=== PATIENT | male | born 1990 | race Caucasian/White ===

== ENCOUNTER 2017-06-22 18:42 | Emergency (ER) | payer SELFPAY ==
[2017-06-22 18:52] VITALS: BP 121/70
[2017-06-22] MEDS ORDERED: Ibuprofen TAB* 800 MG PO ONE (20:14)
[2017-06-22] MEDS ORDERED: Tetan/Diph/Pertus SYR(Tdap)* 0.5 ML SYR(BOOSTRIX) use SYR IM ONE (21:33)
--- NOTE | 2017-06-22 21:37 | ED ---
Upper Extremity Pain - HPI Summary HPI Summary: Rt hand dominant pt here w/ Lt index finger lac while cutting frozen palacio. Bleeding controlled w/ pressure. Denies numbness, tingling, weakness. Unsure of last tetanus vaccine - would like to boost this tonight. No other injuries to report. - History of Current Complaint Chief Complaint: EDLacSutureRecheck Stated Complaint: LEFT FINGER LACERATION Time Seen by Provider: 06/22/17 19:53 Hx Obtained From: Patient - Allergies/Home Medications Allergies/Adverse Reactions: Allergies Allergy/AdvReac Type Severity Reaction Status Date / Time Iohexol Allergy See Comment Verified 01/04/14 12:56 PMH/Surg Hx/FS Hx/Imm Hx Previously Healthy: Yes Endocrine/Hematology History: Denies: Hx Anticoagulant Therapy, Hx Blood Disorders - Immunization History Immunizations Up to Date: Unable to Obtain/Confirm Infectious Disease History: No Infectious Disease History: Denies: Hx of Known/Suspected MRSA, Traveled Outside the [place] in Last 30 Days - Family History Known Family History: Positive: None - Social History Occupation: Unemployed Lives: With Family Alcohol Use: None Hx Substance Use: No Substance Use Type: Reports: None Hx Tobacco Use: Yes Smoking Status (MU): Current Every Day Smoker Review of Systems Positive: no symptoms reported Musculoskeletal: Negative Skin: Other - lac Neurological: Negative Psychological: Normal All Other Systems Reviewed And Are Negative: Yes Physical Exam Triage Information Reviewed: Yes Vital Signs On Initial Exam: Initial Vitals Temp Pulse Resp BP Pulse Ox 99.6 F 80 16 121/70 95 06/22/17 18:50 06/22/17 18:50 06/22/17 18:50 06/22/17 18:50 06/22/17 18:50 Vital Signs Reviewed: Yes Appearance: Positive: Well-Appearing, No Pain Distress, Well-Nourished Skin: Positive: Warm, Dry - linear laceration over dorsal aspect of Lt index finger, crossing PIP joint - no active bleeding Head/Face: Positive: Normal Head/Face Inspection Eyes: Positive: EOMI ENT: Positive: Hearing grossly normal Respiratory/Lung Sounds: Positive: Breath Sounds Present Cardiovascular: Positive: Pulses are Symmetrical in both Upper and Lower Extremities Musculoskeletal: Positive: Normal, Strength/ROM Intact Neurological: Positive: Normal, Sensory/Motor Intact, Alert, Oriented to Person Place, Time, CN Intact II-III Psychiatric: Positive: Normal - Shonda Coma Scale Coma Scale Total: 15 Procedures - Laceration/Wound Repair 1 Location: upper extremity - Lt index finger Description: Linear Length, Depth and Shape: 2cm x 3mm Betadine Prep?: Yes Irrigated w/ Saline (ccs): 250 Laceration/Wound Explored: clean Closure: Single Layer Suture Type: Nylon - 5-0 Number of Sutures: 4 Layer Closure?: No Sterile Dressing Applied?: Yes - triple anbx ointment+ gauze+splint - N/V intact before and after Diagnostics - Vital Signs Vital Signs Temp Pulse Resp BP Pulse Ox 06/22/17 18:50 99.6 F 80 16 121/70 95 - Laboratory Lab Statement: Any lab studies that have been ordered have been reviewed, and results considered in the medical decision making process. Course/Dx - Course Course Of Treatment: Pt wound cleaned and closed - investigation did not reveal tendon injury. Hemodynamically stable. Pt tolerated procedure well. Advised on care and f/u - pt agrees w/ plan. - Diagnoses Provider Diagnoses: Laceration of left index finger Discharge - Discharge Plan Condition: Stable Disposition: HOME Patient Education Materials: Care For Your Stitches (ED), Finger Laceration (ED ) Referrals: No Primary Care Phys,NOPCP [Primary Care Provider] - Additional Instructions: Keep dressing clean, dry and in place for 48 hours. After that time, you may remove dressing to gently wash wound daily with antibacterial soap and water - rinse well and pat dry with clean cloth then reapply triple antibiotic ointment plus dressing and splint. Keep splint in place for 10-14 days to prevent opening wound - followup with PCP or go to urgent care, ED for wound check and suture removal. In the meantime, rest, ice, elevate for pain relief. You may also take ibuprofen with food for pain relief. *If area becomes red, swollen, drains yellow/white/green discharge, streaking of redness or you develop fever or chills, return to ED
== END 2017-06-22 21:52 | disposition home or self-care (01) ==
LOC: ED 18:42
DX: S61.211A Laceration without foreign body of left index finger without damage to nail, initial encounter (principal); W26.0XXA Contact with knife, initial encounter; Y93.G1 Activity, food preparation and clean up; Y92.9 Unspecified place or not applicable; Z23 Encounter for immunization; F17.210 Nicotine dependence, cigarettes, uncomplicated
CPT/HCPCS: 12001; 90471; 90715; 99282; A9270-GY

== ENCOUNTER 2017-07-06 09:52 | Emergency (ER) | payer SELFPAY ==
--- NOTE | 2017-07-06 10:44 | ED ---
Laceration/Wound HPI - HPI Summary HPI Summary: Patient presents to the ED with request for suture removal. 4 sutures placed to the left index anterior finger. He has been in a splint since sutures were placed 1 week ago. He states after the accident he was able to move the finger , except now with removing the splint, he is unable to flex or extend at the DIP or PIP joint. Denies numbness, tingling. Denies color or temperature changes. Pulses +2 bilaterally and cap refill < 2 sec. Has been otherwise healthy. Using abx ointment daily until today. - History of Current Complaint Stated Complaint: STICHES NEED TO BE REMOVED Time Seen by Provider: 07/06/17 09:53 Hx Obtained From: Patient Mechanism of Injury: Sharp/Blunt Trauma Onset/Duration: Sudden Onset Aggravating: Movement Alleviating: Compression Timing: Constant Current Severity: Mild Pain Intensity: 0 Pain Scale Used: 0-10 Numeric Associated Signs & Symptoms: Negative Related Hx: Dominant Hand (Right) - Allergy/Home Medications Allergies/Adverse Reactions: Allergies Allergy/AdvReac Type Severity Reaction Status Date / Time Iohexol Allergy See Comment Verified 01/04/14 12:56 PMH/Surg Hx/FS Hx/Imm Hx Previously Healthy: Yes Endocrine/Hematology History: Denies: Hx Anticoagulant Therapy, Hx Blood Disorders Infectious Disease History: No Infectious Disease History: Denies: Hx of Known/Suspected MRSA, Traveled Outside the in Last 30 Days - Family History Known Family History: Positive: None - Social History Occupation: Employed Full-time Lives: With Family Alcohol Use: None Hx Substance Use: No Substance Use Type: Reports: None Hx Tobacco Use: Yes Smoking Status (MU): Heavy Every Day Tobacco Smoker Review of Systems Constitutional: Negative Negative: Fever, Fatigue Eyes: Negative Cardiovascular: Negative Gastrointestinal: Negative Genitourinary: Negative Positive: no symptoms reported, see HPI Positive: Decreased ROM, Other - unable to flex or extend at the left index finger Neurological: Negative All Other Systems Reviewed And Are Negative: Yes Physical Exam Triage Information Reviewed: Yes Vital Signs On Initial Exam: Initial Vitals Temp Pulse Resp BP Pulse Ox 97.4 F 73 16 126/68 97 07/06/17 09:54 07/06/17 09:54 07/06/17 09:54 07/06/17 09:54 07/06/17 09:54 Vital Signs Reviewed: Yes Appearance: Positive: Well-Appearing, Well-Nourished Skin: Positive: Warm, Skin Color Reflects Adequate Perfusion, Other - healing wound - upon passive flexion of the digit, the wound continues to open as laceration is located over the PIP joint. No signs of infection. Laceratoin remains superifical Head/Face: Positive: Normal Head/Face Inspection Eyes: Positive: EOMI, MALATHI, Conjunctiva Clear Respiratory/Lung Sounds: Positive: Clear to Auscultation, Breath Sounds Present Cardiovascular: Positive: Normal, RRR, Pulses are Symmetrical in both Upper and Lower Extremities Musculoskeletal: Positive: Other - decreased ROM of flexion and extension at the PIP joint Neurological: Positive: Sensory/Motor Intact, Alert, Oriented to Person Place, Time, Speech Normal Psychiatric: Positive: Affect/Mood Appropriate Diagnostics - Vital Signs Vital Signs Temp Pulse Resp BP Pulse Ox 07/06/17 09:54 97.4 F 73 16 126/68 97 - Laboratory Lab Statement: Any lab studies that have been ordered have been reviewed, and results considered in the medical decision making process. Laceration Repair Course/Dx - Course Course Of Treatment: Healing wound - upon passive flexion of the digit, the wound continues to open as laceration is located over the PIP joint. No signs of infection. Laceratoin remains superifical. Sutures removed. Patient tolerated well. Ortho referral given for decreased ROM. abx ointment applied and wrapped. Patient OK with discharge. - Clinical Impression Provider Diagnoses: Visit for suture removal Discharge - Discharge Plan Condition: Stable Disposition: HOME Patient Education Materials: Stitches Removal (ED) Referrals: No Primary Care Phys,NOPCP [Primary Care Provider] - Rob Lebron MD [Medical Doctor] - Additional Instructions: Attempt to move it at times throughout the day I have given you an orthopedic referral for any worsening symptoms
[2017-07-06 10:51] VITALS: BP 133/78
== END 2017-07-06 10:50 | disposition home or self-care (01) ==
LOC: ED 09:52
DX: S61.211D Laceration without foreign body of left index finger without damage to nail, subsequent encounter (principal); Z48.02 Encounter for removal of sutures; X58.XXXD Exposure to other specified factors, subsequent encounter
CPT/HCPCS: 99282

== ENCOUNTER 2019-05-26 16:59 | Emergency (ER) | payer OTHER ==
[2019-05-26] MEDS ORDERED: LORazepam INJ* 2 MG/ML 1 ML VIAL ONE (17:15)
--- NOTE | 2019-05-26 17:25 | ED ---
Psychiatric Complaint - HPI Summary HPI Summary: This patient is a 29 year old male brought in by LE on a 945 presenting to [facility] with [employer]. The patient is refusing all care and refuses to cooperate with staff. He denies having any problems. A report was made to the nurse of a potential attempt at hanging. Pt denies any fever, chills, erythema of eyes, sore throat, CP, SOB, cough, abdominal pain, N/V, dysuria, hematuria, myalgia, edema, rash, or dizziness - History Of Current Complaint Time Seen by Provider: 05/26/19 17:11 Hx Obtained From: Patient Onset/Duration: Lasting Hours Has Suicidal: Reports: Thoughts - Allergies/Home Medications Allergies/Adverse Reactions: Allergies Allergy/AdvReac Type Severity Reaction Status Date / Time iohexol Allergy See Comment Verified 05/26/19 17:12 PMH/Surg Hx/FS Hx/Imm Hx Endocrine/Hematology History: Denies: Hx Anticoagulant Therapy, Hx Blood Disorders Infectious Disease History: Denies: Hx of Known/Suspected MRSA - Family History Known Family History: Negative: Cardiac Disease, Hypertension - Social History Alcohol Use: None Hx Substance Use: No Substance Use Type: Reports: None Hx Tobacco Use: Yes Smoking Status (MU): Heavy Every Day Tobacco Smoker Review of Systems Negative: Fever, Chills Negative: Erythema Negative: Sore Throat Negative: Chest Pain Negative: Shortness Of Breath, Cough Negative: Abdominal Pain, Vomiting, Nausea Negative: dysuria, hematuria Negative: Myalgia, Edema Negative: Rash Neurological: Other - Neg: Dizziness All Other Systems Reviewed And Are Negative: No Physical Exam - Summary Physical Exam Summary: Constitutional: Well-developed, Well-nourished, Alert. (-) Distressed Skin: Warm, Dry HENT: Normocephalic; Atraumatic Eyes: Conjunctiva normal Neck: Musculoskeletal ROM normal neck. (-) JVD, (-) Stridor, (-) Tracheal deviation Cardio: Rhythm regular, rate normal, Heart sounds normal; Intact distal pulses; The pedal pulses are 2+ and symmetric. Radial pulses are 2+ and symmetric. (-) Murmur Pulmonary/Chest wall: Effort normal. (-) Respiratory distress, (-) Wheezes, (-) Rales Abd: Soft, (-) tenderness, (-) Distension, (-) Guarding, (-) Rebound Musculoskeletal: (-) Edema Lymph: (-) Cervical adenopathy Neuro: Alert, Oriented x3 Psych: Mood and affect Normal Triage Information Reviewed: Yes Vital Signs Reviewed: Yes Procedures - Sedation Patient Received Moderate/Deep Sedation with Procedure: No Course/Dx - Course Course Of Treatment: This patient is a 29 year old male brought in by LE on a 945 presenting to [facility] with [employer] IN[employer]IGATOR. Patient cleared for [facility]. [facility] diagnosed the patient with adjustive disorder with depressed mood and discharged the patient per Dr. Cevallos, Psychiatry. - Differential Dx/Clinical Impression Provider Diagnosis: Adjustment disorder, Depressed mood Discharge ED - Sign-Out/Discharge Documenting (check all that apply): Patient Departure - Discharge, per [facility] - Discharge Plan Condition: Stable Referrals: Yadi Gale MD [Primary Care Provider] - - Attestation Statements Document Initiated by Scribe: Yes Documenting Scribe: Jordan Guillory Provider For Whom Scribe is Documenting (Include Credential): Chool Rodriguez MD Scribe Attestation: Jordan Antunez, scribed for Cholo Rodriguez MD on 05/26/19 at 1958. Status of Scribe Document: Ready
[2019-05-26 17:35] LABS: ABS Basophils 0.1 10^3/ul (0-0.2); ABS Eosinophils 0.2 10^3/ul (0-0.6); ABS Lymphocytes 2.4 10^3/ul (1.0-4.8); ABS Monocytes 0.4 10^3/ul (0-0.8); ABS Neutrophils 5.2 10^3/ul (1.5-7.7); Eosinophil % 2.2 %; Hematocrit 50 % (42-52); Hemoglobin 17.2 g/dL (14.0-18.0); Mean Corpuscular HGB Conc 34 g/dL (31-36); Mean Corpuscular Hemoglobin 31 pg (27-31); Mean Corpuscular Volume 91 fL (80-94); Mean Platelet Volume 9.6 fL (7.4-10.4); Platelet Count 166 10^3/uL (150-450); Red Blood Count 5.52 10^6 /uL (4.18-5.48); Red Cell Distribution Width 15 % (10-15); White Blood Count 8.3 10^3/uL (3.5-10.8)
[2019-05-26 17:38] LABS: Urine Appearance Cloudy; Urine Bilirubin Negative (Negative); Urine Blood Negative (Negative); Urine Color Yellow; Urine Glucose Negative (Negative); Urine Ketones 1+ (Negative); Urine Nitrite Negative (Negative); Urine Protein Negative (Negative); Urine Specific Gravity 1.027 (1.010-1.030); Urine Urobilinogen Negative (Negative)
[2019-05-26 17:52] LABS: ALT 8 U/L (7-52); AST 9 U/L (13-39); Albumin 4.5 g/dL (3.2-5.2); Albumin/Globulin Ratio 1.7 (1-3); Alkaline Phosphatase 57 U/L (34-104); Anion Gap 6 mmol/L (2-11); BUN/Creatinine Ratio 16.1 (8-20); Blood Urea Nitrogen 14 mg/dL (6-24); CO2 Carbon Dioxide 28 mmol/L (22-32); Calcium 9.4 mg/dL (8.6-10.3); Chloride 107 mmol/L (101-111); EGFR African American 124.7 (>60); Globulin 2.7 g/dL (2-4); Glucose 93 mg/dL (70-100); Potassium 3.7 mmol/L (3.5-5.0); Sodium 141 mmol/L (135-145); Total Protein 7.2 g/dL (6.4-8.9)
[2019-05-26 17:54] LABS: Urine Benzodiazepine Screen None Detected (None Detect); Urine Opiates Screen None Detected (None Detect)
[2019-05-26 18:00] LABS: Acetaminophen < 15 mcg/mL; Alcohol < 10 mg/dL (<10); Salicylate < 2.50 mg/dL (<30)
[2019-05-26 18:14] LABS: TSH (Thyroid Stimulating Horm) 0.67 mcIU/mL (0.34-5.60)
--- OUTSIDE RECORDS SUMMARY | 2019-05-26 18:25 | XMS REPORT | Continuity of Care Document ---
:1990 External Reference #:[id number] Author Name Shahid Platt N.P. Address [address] [place] [address] [address] [place] [address] Problems Description No Information Available Social History Type Date Description Comments Sex Unknown ETOH Use Denies alcohol use Tobacco Use Start: Unknown End: Unknown Patient is a former smoker Recreational Drug Use Denies Drug Use Allergies, Adverse Reactions, Alerts Description No Known Drug Allergies Medications Active Medications SIG Qnty Indications Ordering Date Provider Carafate 1 tab by mouth 90tabs Yadi Gale, 05/12/2019 1gm Tablets three times a day M.D. before meals Proctosol HC apply to 56.7gm K64.9 Yadi Gale, 05/01/2019 2.5% hemorrhoid four M.D. Cream times a day as needed Omeprazole 1 by mouth bid 60caps K21.0 Yadi Gale, 05/01/2019 40mg M.D. Capsules Ondansetron 1 tab by mouth 30tabs R11.2 Yadi Gale, 04/26/2019 4mg every 4 hours as M.D. Tablets Dispers needed Colace 2 by mouth twice a 120caps K59.00 Yadi Gale, 04/12/2019 100mg Capsules day M.D. Meclizine HCL take one tablet by 90tabs H81.13 Yadi Gale, 04/12/2019 25mg mouth every 6 M.D. Tablets hours as needed Immunizations Description No Information Available Vital Signs Date Vital Result Comment 05/12/2019 8:41am BP Systolic 123 mmHg BP Diastolic 60 mmHg Height 75 inches 6'3" Weight 206.00 lb BMI (Body Mass Index) 25.7 kg/m2 Heart Rate 90 /min Respiratory Rate 16 /min 05/01/2019 9:43am BP Systolic 115 mmHg BP Diastolic 70 mmHg Height 75 inches 6'3" Weight 207.00 lb BMI (Body Mass Index) 25.9 kg/m2 Heart Rate 93 /min Respiratory Rate 16 /min Results Test Date Facility Test Result H/L Range Note Laboratory test 05/12/2019 [facility] Amylase <pending> finding [address] [facility] (607)- - Lipase <pending> Order 05/12/2019 Yadi Gale MD Venipuncture <pending> Laboratory test 04/26/2019 [facility] Bilirubin,Conjugate 0.1 mg/dL ( 0.0-0 finding [facility] d .3) (607)- - Bilirubin,Unconj. 0.3 mg/dL (0.0-0.7) Laboratory test 04/26/2019 [facility] Amylase 126 U/L High (25-115) finding [address] [facility] (607)- - Lipase 73 U/L (65-230) Hepatitis Profile 04/26/2019 [facility] Hepatitis B S Ag NEGATIVE (Neg ) Acute [address] [facility] @ (607)- - Hep. B Core Igm @ NEGATIVE (Neg) Hepatitis A AB Igm @ NEGATIVE (Neg) Hepatitis C AB @ NEGATIVE (Neg) 1 Laboratory test 04/26/2019 [facility] Vitamin B12 @ 461 pg/mL (193-986 ) finding [facility] (607)- - Folate @ 5.5 ng/mL (3.1-17.5) Iron Panel 04/26/2019 [facility] Iron,Total @ 124 g/dL (35-150) 113 [facility] (607)- - Uibc @ 150 g/dL (130-375) Tibc @ 274 g/dL (250-450) % Saturation 45 % (12-50) CMP 04/26/2019 [facility] Sodium 143 mmol/L (136-145) [address] [facility] (607)- - Potassium 3.9 mmol/L (3.6-5.2) Chloride 107 mmol/L (100-108) Co2 27 mmol/L (22-31) Anion Gap 9 mmol/L (7-16) Urea Nitrogen 17 mg/dL (7-24) Creatinine 1.37 mg/dL High (0.80-1.30) BUN/Creat Ratio 12.4 RATIO (10.0-20.0) Glucose 98 mg/dL (70-99) Calcium 8.9 mg/dL (8.4-10.2) Total Protein 7.2 g/dL (6.4-8.2) Albumin 4.0 g/dL (3.5-4.6) Globulin 3.2 g/dL (2.7-4.3) Alb/Glob Ratio 1.3 RATIO Alkaline Phosphatase 64 U/L (45-117) Bilirubin,Total 0.4 mg/dL (0.0-1.0) Ast (Sgot) 5 U/L Low (11-39) Alt (SGPT) 16 U/L (12-78) GFR >60 ml/min/1.73m2 (>59) GFR ( Amer) >60 ml/min/1.73m2 (>59) GFR Interpretation <SEE NOTE> 2 CBC With Diff 04/26/2019 [facility] WBC 7.2 10*3/uL (4.1-11.0) [address] [facility] (607)- - RBC 5.36 10*6/uL (4.60-6.10) HGB 16.6 g/dL (13.5-18.0) HCT 48.5 % (41.0-53.0) MCV 90.6 fL (80.0-95.0) MCH 31.0 pg (27.0-32.0) MCHC 34.2 g/dL (32.0-36.0) RDW 14.4 % (10.5-14.5) PLT 192 10*3/uL (150-450) MPV 10.5 fL (7.1-10.7) Neut % 61.9 % (35.0-75.0) Lymph % 30.1 % (16.0-52.0) Crawford % 6.3 % (0.0-8.0) Eos % 0.9 % (0.0-5.0) Baso % 0.8 % (0.0-4.0) Neut # 4.5 10*3/uL (1.8-7.7) Lymph # 2.2 10*3/uL (1.2-4.8) Crawford # 0.5 10*3/uL (0.0-0.8) Eos # 0.1 10*3/uL (0.0-0.5) Baso # 0.1 10*3/uL (0.0-0.2) CBS W/Automated Diff 04/18/2019 [facility] White Blood 10.3 K/uL Normal 3.4 -10.5 3 Count Red Blood Count 5.62 M/uL Normal 4.20-5.80 Hemoglobin 17.6 gm/dL High 12.8-17.0 Hematocrit 49.9 % High 38.0-48.0 Mean Cell Volume 88.8 fl Normal 80.0-96.0 Mean Corpuscular HGB 31.3 pg Normal 27.0-33.0 Mean Corpuscular HGB Conc 35.3 g/dL Normal 31.7-36.0 Platelet Count 204 K/uL Normal 155-360 Red Cell Distri Width SD 44.1 fl Normal 36-51 Red Cell Distri Width %CV 13.7 % Normal 11.6-15.8 Mean Platelet Volume 11.8 fl High 6.6-10.6 Neut% 59.4 % Normal 33.0-73.0 Lymph % 28.0 % Normal 20.0-42.0 Crawford % 8.4 % Normal 0.0-10.0 Eo% 3.1 % Normal 0.0-6.6 Bas% 0.8 % Normal 0.0-1.1 Immature Grans 0.3 % Normal 0.0-5.0 NRBC % 0.0 /100WBC < 10/ 100 WBC Neut# 6.13 K/uL Normal 1.8-7.0 Lymph # 2.89 K/uL Normal 1.0-4.0 Crawford # 0.87 K/uL High 0.0-0.8 Eos # 0.32 K/uL Normal 0.0-0.5 Baso # 0.08 K/uL Normal 0.0-0.1 Immature Grans Absolute 0.03 K/uL NRBC # 0.00 K/uL Comprehensive Metabolic Panel 04/18/2019 [facility] Glucose 86 mg/dL Normal 74-106 BUN 15 mg/dL Normal 7-18 Creatinine 1.0 mg/dL Normal 0.6-1.3 Glom Filtration Rate, Estimate >60 mL/min >60 If >60 mL/min >60 4 BUN/Creat 15.0 ratio Sodium 143 mmol/L Normal 136-145 Potassium 4.2 mmol/L Normal 3.5-5.1 Chloride 110 mmol/L High 98-107 Carbon Dioxide 26 mmol/L Normal 21-32 Anion Gap 7 mEq/L Low 8-16 Calcium 8.9 mg/dL Normal 8.5-10.1 Total Protein 7.6 g/dL Normal 6.4-8.2 Albumin 4.1 g/dL Normal 3.4-5.0 Globulin 3.5 g/dL Normal 1.9-4.3 Alb/Glob 1.2 ratio Bilirubin,Total 0.3 mg/dL Normal 0.2-1.0 Sgot/Ast 13 U/L Low 15-37 5 SGPT/Alt 26 U/L Normal 12-78 Alkaline Phosphatase 73 U/L Normal 45-117 Laboratory test 04/18/2019 [facility] C. Difficile Toxin B NEGATIVE Negative 6 finding by PCR Enteric Pathogens 04/18/2019 [facility] Campylobacter SP PCR NEGATIVE Negative Panel, PCR E. coli Stec PCR NEGATIVE Negative 7 Shigella Sp. PCR NEGATIVE Negative Salmonella Sp. PCR NEGATIVE Negative 8 Ua RFX Micro & Culture II 04/18/2019 [facility] Urine Color Yellow Yellow 9 Urine Clarity Clear Clear Urine Glucose - Dipstick NEGATIVE mg/dL Negative Urine Bilirubin - Dipstick NEGATIVE Negative Urine Ketone NEGATIVE mg/dL Negative Urine Specific [place] Burn 1.029 Normal 1.010-1.030 Urine Blood NEGATIVE 0-2 Urine PH 5.0 Low 6.5-7.5 Urine Protein - Dipstick NEGATIVE mg/dL Negative Urine Urobilinogen - Dipstick < 2.0 mg/dL < 2.0 Urine Nitrite - Dipstick NEGATIVE Negative Urine Leuk Esterase NEGATIVE Negative Source: URINE, CLEAN CAT <SEE NOTE> 10 1 NOT INFECTED WITH HCV, UNLESS RECENT INFECTION IS SUSPECTED OR OTHER EVIDENCE EXISTS TO INDICATE HCV INFECTION. 2 NORMAL KIDNEY FUNCTION OR MILD DISEASE - GFR >OR= 60 CHRONIC KIDNEY DISEASE - GFR 15 - 59 RENAL FAILURE - GFR <15 Est. GFR calculation based on the MDRD study equation, which assumes a steady state for creatinine. Est. GFR should not be used for medication dosing. 3 SEVERE ABDOMINAL PAIN 4 Note: Persistent reduction for 3 months or more in an eGFR <60 mL/min/1.73 m2 defines CKD. Patients with eGFR values >/=60 mL/min/1.73 m2 may also have CKD if evidence of persistent proteinuria is present. The original MDRD equation for estimated GFR is not valid for patients less than 18 years of age. Additional information may be found at www.kdoqi.org. 5 Values below the stated reference ranges of AST and ALT can be seen in normal populations. Clinical correlation is suggested. 6 A positive C. diff result does not necessarily indicate the presence of viable organisms. It does however indicate the presence of the tcdB gene and allows for presumptive detection of a Clostridium difficile toxigenic organism. As with all PCR-based in vitro diagnostic tests, extremely low levels of DNA below the limit of detection of the assay may produce a false negative result. METHOD: PCR 7 Shiga-toxin producing E. coli (STEC). 8 A positive result does not necessarily indicate the presence of viable organism. It does however, indicate the presence of DNA from Campylobacter sp., Salmonella sp., Shigella sp. and/or shiga toxin producing E. coli (STEC). Yersinia, Vibrio, Aeromonas and Plesiomonas are not routinely screened for and should be requested separately. Assay Limitations This assay detects only Campylobacter jejuni and Campylobacter coli and does not differentiate between the species. Other campylobacter species are not detected by the assay. The assay does not distinguish which Shiga toxin gene (stx1/stx2) is present in a specimen. The assay does not differentiate between Shigella sp., and enteroinvasive Escherichia coli (EIEC). As with all PCR-based in vitro diagnostic tests, extremely low levels of DNA below the analytical sensitivity of the assay may produce a false negative result. METHOD: PCR 9 PAIN BOTH SIDE DOWN TO MANHOOD 10 URINE, CLEAN CATCH Procedures Date Code Description Status 04/12/2019 46487 Visual Screening Test Completed 04/12/2019 72858 Audiometry, Bekesy, Screening Completed Medical Devices Description No Information Available Encounters Type Date Location Provider Dx Diagnosis Office Visit 05/12/2019 [facility] Shahid Platt, K59.00 Constipation, 8:30a N.P. 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 unspecified L20.9 Atopic dermatitis, unspecified J30.9 Allergic rhinitis, unspecified J44.9 Chronic obstructive pulmonary disease, unspecified H81.13 Benign paroxysmal vertigo, bilateral R56.9 Unspecified convulsions R10.31 Right lower quadrant pain R11.2 Nausea with vomiting, unspecified K92.1 Melena Office Visit 04/19/2019 10:15a [facility] Shahid Platt, K59.00 Constipation, N.P. unspecified L20.9 Atopic dermatitis, unspecified J30.9 Allergic rhinitis, unspecified J44.9 Chronic obstructive pulmonary disease, unspecified H81.13 Benign paroxysmal vertigo, bilateral R56.9 Unspecified convulsions R10.31 Right lower quadrant pain R11.2 Nausea with vomiting, unspecified K92.1 Melena Office Visit 04/12/2019 1:45p [facility] Shahid Platt, K59.00 Constipation, N.P. unspecified L20.9 Atopic dermatitis, unspecified J30.9 Allergic rhinitis, unspecified J44.9 Chronic obstructive pulmonary disease, unspecified H81.13 Benign paroxysmal vertigo, bilateral R56.9 Unspecified convulsions Z00.01 Encounter for general adult medical exam w abnormal findings Assessments Date Code Description Provider 05/12/2019 K59.00 Constipation, unspecified Shahid Platt, N.P. 05/12/2019 L20.9 Atopic dermatitis, unspecified Shahid Platt, N.P. 05/12/2019 J30.9 Allergic rhinitis, unspecified Shahid Platt, N.P. 05/12/2019 J44.9 Chronic obstructive pulmonary disease, Shahid Platt, N.P. unspecified 05/12/2019 H81.13 Benign paroxysmal vertigo, bilateral Shahid Platt, N.P. 05/12/2019 R56.9 Unspecified convulsions Shahid Platt N.P. 05/12/2019 R10.31 Right lower quadrant pain Shahid Platt N.P. 05/12/2019 R11.2 Nausea with vomiting, unspecified Shahid Platt N.P. 05/12/2019 K92.1 Melena Shahid Platt N.P. 05/12/2019 K21.0 Gastro-esophageal reflux disease with Shahid Platt N.PSantiago esophagitis 05/12/2019 K64.9 Unspecified hemorrhoids Shahid Platt N.P. 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 system 05/12/2019 H90.6 Mixed conductive and sensorineural hearing Shahid Platt N.P. loss, bilateral 05/01/2019 K59.00 Constipation, unspecified Shahid Platt, N.P. 05/01/2019 L20.9 Atopic dermatitis, unspecified Shahid Platt, N.P. 05/01/2019 J30.9 Allergic rhinitis, unspecified Shahid Platt, N.P. 05/01/2019 J44.9 Chronic obstructive pulmonary disease, Shahid Platt N.P. unspecified 05/01/2019 H81.13 Benign paroxysmal vertigo, bilateral Shahid Platt N.P. 05/01/2019 R56.9 Unspecified convulsions Shahid Platt N.P. 05/01/2019 R10.31 Right lower quadrant pain Shahid Platt, N.P. 05/01/2019 R11.2 Nausea with vomiting, unspecified Shahid Platt, N.P. 05/01/2019 K92.1 Romelia Shahid Platt, N.P. 05/01/2019 K21.0 Gastro-esophageal reflux disease with Shahid Platt, N.P. esophagitis 05/01/2019 K64.9 Unspecified hemorrhoids Shahid Platt, N.P. 05/01/2019 D37.6 Neoplasm of uncertain behavior of liver, Shahid Platt, N.P. gallbladder and bile ducts 05/01/2019 D49.0 Neoplasm of unspecified behavior of digestive Shahid Platt , N.P. system 04/26/2019 K59.00 Constipation, unspecified Shahid Platt, N.P. 04/26/2019 L20.9 Atopic dermatitis, unspecified Shahid Platt, N.P. 04/26/2019 J30.9 Allergic rhinitis, unspecified Shahid Platt, N.P. 04/26/2019 J44.9 Chronic obstructive pulmonary disease, Shahid Platt, N.P. unspecified 04/26/2019 H81.13 Benign paroxysmal vertigo, bilateral Shahid Platt, N.P. 04/26/2019 R56.9 Unspecified convulsions Shahid Platt, N.P. 04/26/2019 R10.31 Right lower quadrant pain Shahid Platt, N.P. 04/26/2019 R11.2 Nausea with vomiting, unspecified Shahid Platt, N.P. 04/26/2019 K92.1 Romelia Shahid Platt, N.P. 04/19/2019 K59.00 Constipation, unspecified Shahid Platt, N.P. 04/19/2019 L20.9 Atopic dermatitis, unspecified Shahid Platt, N.P. 04/19/2019 J30.9 Allergic rhinitis, unspecified Shahid Platt, N.P. 04/19/2019 J44.9 Chronic obstructive pulmonary disease, Shahid Platt, N.P. unspecified 04/19/2019 H81.13 Benign paroxysmal vertigo, bilateral Shahid Platt, N.P. 04/19/2019 R56.9 Unspecified convulsions Shahid Platt, N.P. 04/19/2019 R10.31 Right lower quadrant pain Shahid Platt, N.P. 04/19/2019 R11.2 Nausea with vomiting, unspecified Shahid Platt N.P. 04/19/2019 K92.1 Romelia Shahid Platt, N.P. 04/12/2019 K59.00 Constipation, unspecified Shahid Platt N.P. 04/12/2019 L20.9 Atopic dermatitis, unspecified Shahid Platt N.P. 04/12/2019 J30.9 Allergic rhinitis, unspecified Shahid Platt N.P. 04/12/2019 J44.9 Chronic obstructive pulmonary disease, Shahid Platt N.P. unspecified 04/12/2019 H81.13 Benign paroxysmal vertigo, bilateral Shahid Platt N.P. 04/12/2019 R56.9 Unspecified convulsions Shahid Platt N.P. 04/12/2019 Z00.01 Encounter for general adult medical examination Shahid Platt N.P. with abnormal findings Plan of Treatment Future Appointment(s):05/19/2019 8:30 am - Shahid Platt N.P. at [facility] Functional Status Description No Information Available Mental Status Description No Information Available Referrals Refer to Reason for Referral Status Appt Date Emi Martinez MD Created [address] [place] [address] [phone] Emi Martinez MD Closed 04/21/[address] [place] [address] [phone] Carroll Stone MD Sent [address] [place] [address] [place] [address] [phone]
--- OUTSIDE RECORDS SUMMARY | 2019-05-26 18:25 | XMS REPORT | Continuity of Care Document ---
:1990 External Reference #:[id number] Author Name Shahid Platt N.P. Address [address] [place] [address] [address] [place] [address] Problems Description No Information Available Social History Type Date Description Comments Sex Unknown ETOH Use Denies alcohol use Tobacco Use Start: Unknown End: Unknown Patient is a former smoker Recreational Drug Use Denies Drug Use Allergies, Adverse Reactions, Alerts Description No Known Drug Allergies Medications Active Medications SIG Qnty Indications Ordering Date Provider Proctosol HC apply to 56.7gm K64.9 Yadi [...] Available Vital Signs Date Vital Result Comment 05/01/2019 9:43am BP Systolic 115 mmHg BP Diastolic 70 mmHg Height 75 inches 6'3" Weight 207.00 lb BMI (Body Mass Index) 25.9 kg/m2 Heart Rate 93 /min Respiratory Rate 16 /min 04/26/2019 2:21pm BP Systolic 118 mmHg BP Diastolic 60 mmHg Height 75 inches 6'3" Weight 202.00 lb BMI (Body Mass Index) 25.2 kg/m2 Heart Rate 84 /min Respiratory Rate 16 /min Results Test Date Facility Test Result H/L Range Note CBC With Diff 04/26/2019 [facility] WBC 7.2 10*3/uL (4.1-11.0) [address] [facility] (607)- - RBC 5.36 10*6/uL (4.60-6.10) HGB 16.6 g/dL (13.5-18.0) HCT 48.5 % (41.0-53.0) MCV 90.6 fL (80.0-95.0) MCH 31.0 pg (27.0-32.0) MCHC 34.2 g/dL (32.0-36.0) RDW 14.4 % (10.5-14.5) PLT 192 10*3/uL (150-450) MPV 10.5 fL (7.1-10.7) Neut % 61.9 % (35.0-75.0) Lymph % 30.1 % (16.0-52.0) [place] % 6.3 % (0.0-8.0) Eos % 0.9 % (0.0-5.0) Baso % 0.8 % (0.0-4.0) Neut # 4.5 10*3/uL (1.8-7.7) Lymph # 2.2 10*3/uL (1.2-4.8) [place] # 0.5 10*3/uL (0.0-0.8) Eos # 0.1 10*3/uL (0.0-0.5) Baso # 0.1 10*3/uL (0.0-0.2) CMP 04/26/2019 [facility] Sodium 143 mmol/L (136-145) [address] [facility] (607)- - Potassium 3.9 mmol/L (3.6-5.2) Chloride [...] >60 ml/min/1.73m2 (>59) GFR Interpretation <SEE NOTE> 1 Iron Panel 04/26/2019 [facility] Iron,Total @ 124 g/dL (35-150) [address] [facility] [place] (607)- - Uibc @ 150 g/dL (130-375) Tibc @ 274 g/dL (250-450) % Saturation 45 % (12-50) Laboratory test 04/26/2019 [facility] Vitamin B12 @ 461 pg/mL (193-986 ) finding 113 [facility] (607)- - Folate @ 5.5 ng/mL (3.1-17.5) Hepatitis Profile 04/26/2019 [facility] Hepatitis B S Ag NEGATIVE (Neg ) Acute [address] [facility] [place] @ (607)- - Hep. B Core Igm @ NEGATIVE (Neg) Hepatitis A AB Igm @ NEGATIVE (Neg) Hepatitis C AB @ NEGATIVE (Neg) 2 Laboratory test 04/26/2019 [facility] [place] Amylase 126 U/L High (25-115) finding [address] [facility] [place] (607)- - Lipase 73 U/L (65-230) Laboratory test 04/26/2019 [facility] Bilirubin,Conjugated 0.1 mg/dL ( 0.0-0.3) finding [address] [facility] [place] (607)- - Bilirubin,Unconj. 0.3 mg/dL (0.0-0.7) CBS W/Automated Diff 04/18/2019 [place] [facility] White Blood 10.3 K/uL Normal 3.4 -10.5 [...] 33.0-73.0 Lymph % 28.0 % Normal 20.0-42.0 [place] % 8.4 % Normal 0.0-10.0 Eo% 3.1 % Normal 0.0-6.6 Bas% 0.8 % Normal 0.0-1.1 Immature Grans 0.3 % Normal 0.0-5.0 NRBC % 0.0 /100WBC < 10/ 100 WBC Neut# 6.13 K/uL Normal 1.8-7.0 Lymph # 2.89 K/uL Normal 1.0-4.0 [place]ble # 0.87 K/uL High 0.0-0.8 Eos # 0.32 K/uL Normal 0.0-0.5 Baso # 0.08 K/uL Normal 0.0-0.1 Immature Grans Absolute 0.03 K/uL NRBC # 0.00 K/uL Comprehensive Metabolic Panel 04/18/2019 [facility] Glucose 86 mg/dL Normal 74-106 BUN 15 [...] 73 U/L Normal 45-117 Laboratory test 04/18/2019 [place] C. Difficile Toxin B NEGATIVE Negative 6 finding by PCR Enteric Pathogens 04/18/2019 [place] [facility] Campylobacter SP PCR NEGATIVE Negative Panel, PCR E. coli Stec PCR NEGATIVE Negative 7 Shigella Sp. PCR NEGATIVE Negative Salmonella Sp. PCR NEGATIVE Negative 8 Ua RFX Micro & Culture II 04/18/2019 [facility] Urine Color Yellow Yellow 9 Urine Clarity Clear Clear Urine Glucose - Dipstick NEGATIVE mg/dL Negative Urine Bilirubin - Dipstick NEGATIVE Negative Urine Ketone NEGATIVE mg/dL Negative Urine Specific [place] 1.029 Normal 1.010-1.030 Urine Blood NEGATIVE 0-2 Urine PH 5.0 Low 6.5-7.5 Urine Protein - Dipstick NEGATIVE mg/dL Negative Urine Urobilinogen - Dipstick < 2.0 mg/dL < 2.0 Urine Nitrite - Dipstick NEGATIVE Negative Urine Leuk Esterase NEGATIVE Negative Source: URINE, CLEAN CAT <SEE NOTE> 10 1 NORMAL KIDNEY FUNCTION OR MILD DISEASE - GFR >OR= 60 CHRONIC KIDNEY DISEASE - GFR 15 - 59 RENAL FAILURE - GFR <15 Est. GFR calculation based on the MDRD study equation, which assumes a steady state for creatinine. Est. GFR should not be used for medication dosing. 2 NOT INFECTED WITH HCV, UNLESS RECENT INFECTION IS SUSPECTED OR OTHER EVIDENCE EXISTS TO INDICATE HCV INFECTION. 3 SEVERE ABDOMINAL PAIN 4 Note: Persistent [...] CATCH Procedures Date Code Description Status 04/12/2019 17860 Visual Screening Test Completed 04/12/2019 27161 Audiometry, Bekesy, Screening Completed Medical Devices Description No Information Available Encounters Type Date Location Provider Dx Diagnosis Office Visit 05/01/2019 [facility] Shahid Platt, K59.00 Constipation, 9:45a N.P. unspecified L20.9 Atopic dermatitis, unspecified J30.9 [...] of digestive system Office Visit 04/26/2019 3:00p [facility] Shahid Platt, K59.00 Constipation, N.P. unspecified L20.9 Atopic dermatitis, unspecified J30.9 Allergic rhinitis, unspecified J44.9 Chronic obstructive pulmonary disease, unspecified H81.13 Benign paroxysmal vertigo, bilateral R56.9 Unspecified convulsions R10.31 Right lower quadrant pain R11.2 Nausea with vomiting, unspecified K92.1 Melena Office Visit 04/19/2019 10:15a [facility] Shahid Platt, K59.00 Constipation, N.P. unspecified L20.9 Atopic dermatitis, unspecified J30.9 Allergic rhinitis, unspecified J44.9 Chronic obstructive pulmonary disease, unspecified H81.13 Benign paroxysmal vertigo, bilateral R56.9 Unspecified convulsions R10.31 Right lower quadrant pain R11.2 Nausea with vomiting, unspecified K92.1 Melena Office Visit 04/12/2019 1:45p [facility] Shahid Lc, K59.00 Constipation, N.P. unspecified L20.9 Atopic dermatitis, unspecified J30.9 Allergic rhinitis, unspecified J44.9 Chronic obstructive pulmonary disease, unspecified H81.13 Benign paroxysmal vertigo, bilateral R56.9 Unspecified convulsions Z00.01 Encounter for general adult medical exam w abnormal findings Assessments Date Code Description Provider 05/01/2019 K59.00 Constipation, unspecified Shahid Platt, N.P. 05/01/2019 L20.9 Atopic dermatitis, unspecified Shahid Platt, N.P. 05/01/2019 J30.9 Allergic rhinitis, unspecified Shahid Platt, N.P. 05/01/2019 J44.9 Chronic obstructive pulmonary disease, Shahid Platt, N.P. unspecified 05/01/2019 H81.13 Benign paroxysmal vertigo, bilateral Shahid Platt, N.P. 05/01/2019 R56.9 Unspecified convulsions Shahid Platt, N.P. 05/01/2019 R10.31 Right lower quadrant pain Shahid Platt, N.P. 05/01/2019 R11.2 Nausea with vomiting, unspecified Shahid Platt, N.P. 05/01/2019 K92.1 Melena Shahid Platt, N.P. 05/01/2019 K21.0 Gastro-esophageal reflux [...] 04/19/2019 R11.2 Nausea with vomiting, unspecified Shahid Platt, N.P. 04/19/2019 K92.1 Romelia Shahid Platt, N.P. 04/12/2019 K59.00 Constipation, unspecified Shahid Platt, N.P. 04/12/2019 L20.9 Atopic dermatitis, unspecified Song [email or web address] 04/12/2019 J30.9 Allergic rhinitis, unspecified Song Ring.P. 04/12/2019 J44.9 Chronic obstructive pulmonary disease, Song Rnig.P. unspecified 04/12/2019 H81.13 Benign paroxysmal vertigo, bilateral Song Ring.PSantiago 04/12/2019 R56.9 Unspecified convulsions Shahid Platt N.P. 04/12/2019 Z00.01 Encounter for general adult medical examination Shahid Platt N.P. with abnormal findings Plan of Treatment Future Appointment(s):05/12/2019 8:30 am - Shahid Platt N.P. at [facility] Functional Status Description No Information Available Mental Status Description No Information Available Referrals Refer to Reason for Referral Status Appt Date Emi Martinez MD Closed 04/21/[address] [place] [address] [phone] Carroll [place] [address] [phone]
--- OUTSIDE RECORDS SUMMARY | 2019-05-26 18:25 | XMS REPORT | Continuity of Care Document ---
:1990 External Reference #:[id number] Author Name Shahid Platt N.P. Address [address] [place] [address] [address] [place] [address] Problems Description No Information Available Social History Type Date Description Comments Sex Unknown ETOH Use Denies alcohol use Tobacco Use Start: Unknown End: Unknown Patient is a former smoker Recreational Drug Use Denies Drug Use Allergies, Adverse Reactions, Alerts Description No Known Drug Allergies Medications Active Medications SIG Qnty Indications Ordering Provider Date Colace 2 by mouth twice 120caps K59.00 Yadi Gale, 04/12/2019 100mg Capsules a day M.D. Meclizine HCL take one tablet 90tabs H81.13 Yadi Gale, 04/12/2019 25mg by mouth every 6 M.D. Tablets hours as needed Immunizations Description No Information Available Vital Signs Date Vital Result Comment 04/19/2019 10:23am BP Systolic 132 mmHg BP Diastolic 72 mmHg Height 75 inches 6'3" Weight 205.00 lb BMI (Body Mass Index) 25.6 kg/m2 Heart Rate 89 /min Respiratory Rate 18 /min 04/12/2019 1:16pm BP Systolic 128 mmHg BP Diastolic 78 mmHg Height 75 inches 6'3" Weight 206.00 lb BMI (Body Mass Index) 25.7 kg/m2 Heart Rate 107 /min Respiratory Rate 18 /min Results Test Date Facility Test Result H/L Range Note CBS W/Automated 04/18/2019 [facility] White Blood Count 10.3 K/uL Normal 3.4-10.5 1 Diff Red Blood Count 5.62 M/uL Normal 4.20-5.80 [...] 33.0-73.0 Lymph % 28.0 % Normal 20.0-42.0 [place] % 8.4 % Normal 0.0-10.0 Eo% 3.1 % Normal 0.0-6.6 Bas% 0.8 % Normal 0.0-1.1 Immature Grans 0.3 % Normal 0.0-5.0 NRBC % 0.0 /100WBC < 10/ 100 WBC Neut# 6.13 K/uL Normal 1.8-7.0 Lymph # 2.89 K/uL Normal 1.0-4.0 Hamilton # 0.87 K/uL High 0.0-0.8 Eos # 0.32 K/uL Normal 0.0-0.5 Baso # 0.08 K/uL Normal 0.0-0.1 Immature Grans Absolute 0.03 K/uL NRBC # 0.00 K/uL Comprehensive Metabolic Panel 04/18/2019 [facility] Glucose 86 mg/dL Normal 74-106 BUN 15 mg/dL Normal 7-18 Creatinine 1.0 mg/dL Normal 0.6-1.3 Glom Filtration Rate, Estimate >60 mL/min >60 If >60 mL/min >60 2 BUN/Creat 15.0 ratio Sodium 143 mmol/L Normal [...] Normal 0.2-1.0 Sgot/Ast 13 U/L Low 15-37 3 SGPT/Alt 26 U/L Normal 12-78 Alkaline Phosphatase 73 U/L Normal 45-117 Ua RFX Micro & Culture II 04/18/2019 [facility] Urine Color Yellow Yellow 4 Urine Clarity Clear Clear Urine Glucose - Dipstick NEGATIVE mg/dL Negative Urine Bilirubin - Dipstick NEGATIVE Negative Urine Ketone NEGATIVE mg/dL Negative Urine Specific [place] 1.029 Normal 1.010-1.030 Urine Blood NEGATIVE 0-2 Urine PH 5.0 Low 6.5-7.5 Urine Protein - Dipstick NEGATIVE mg/dL Negative Urine Urobilinogen - Dipstick < 2.0 mg/dL < 2.0 Urine Nitrite - Dipstick NEGATIVE Negative Urine Leuk Esterase NEGATIVE Negative Source: URINE, CLEAN CAT <SEE NOTE> 5 1 SEVERE ABDOMINAL PAIN 2 Note: Persistent reduction for 3 months or more in an eGFR <60 mL/min/1.73 m2 defines CKD. Patients with eGFR values >/=60 mL/min/1.73 m2 may also have CKD if evidence of persistent proteinuria is present. The original MDRD equation for estimated GFR is not valid for patients less than 18 years of age. Additional information may be found at www.kdoqi.org. 3 Values below the stated reference ranges of AST and ALT can be seen in normal populations. Clinical correlation is suggested. 4 PAIN BOTH SIDE DOWN TO MANHOOD 5 URINE, CLEAN CATCH Procedures Date Code Description Status 04/12/2019 04229 Visual Screening Test Completed 04/12/2019 77625 Audiometry, Bekesy, Screening Completed Medical Devices Description No Information Available Encounters Type Date Location Provider Dx Diagnosis Office Visit 04/19/2019 [facility] Shahid Platt, K59.00 Constipation, 10:15a N.P. unspecified L20.9 Atopic dermatitis, unspecified J30.9 Allergic rhinitis, unspecified J44.9 Chronic obstructive pulmonary disease, unspecified H81.13 Benign paroxysmal vertigo, bilateral R56.9 Unspecified convulsions R10.31 Right lower quadrant pain R11.2 Nausea with vomiting, unspecified K92.1 [facility] Office Visit 04/12/2019 1:45p [facility] Shahid Platt, K59.00 Constipation, N.P. unspecified L20.9 Atopic dermatitis, unspecified J30.9 Allergic rhinitis, unspecified J44.9 Chronic obstructive pulmonary disease, unspecified H81.13 Benign paroxysmal vertigo, bilateral R56.9 Unspecified convulsions Z00.01 Encounter for general adult medical exam w abnormal findings Assessments Date Code Description Provider 04/19/2019 K59.00 Constipation, unspecified Shahid Platt, N.P. 04/19/2019 L20.9 Atopic dermatitis, unspecified Shahid Platt, N.P. 04/19/2019 J30.9 Allergic rhinitis, unspecified Shahid Platt, N.P. 04/19/2019 J44.9 Chronic obstructive pulmonary disease, Shahid Platt, N.P. unspecified 04/19/2019 H81.13 Benign paroxysmal vertigo, bilateral Shahid Platt N.P. 04/19/2019 R56.9 Unspecified convulsions Shahid Platt N.P. 04/19/2019 R10.31 Right lower quadrant pain Shahid Platt N.P. 04/19/2019 R11.2 Nausea with vomiting, unspecified Shahid Platt N.P. 04/19/2019 K92.1 [facility] Shahid Platt, N.P. 04/12/2019 K59.00 Constipation, unspecified Shahid Platt, N.P. 04/12/2019 L20.9 Atopic dermatitis, unspecified Shahid Platt N.P. 04/12/2019 J30.9 Allergic rhinitis, unspecified Shahid Platt, N.P. 04/12/2019 J44.9 Chronic obstructive pulmonary disease, Shahid Platt, N.P. unspecified 04/12/2019 H81.13 Benign paroxysmal vertigo, bilateral Shahid Platt N.P. 04/12/2019 R56.9 Unspecified convulsions Shahid Platt N.P. 04/12/2019 Z00.01 Encounter for general adult medical examination Shahid Platt N.P. with abnormal findings Plan of Treatment Future Appointment(s):05/12/2019 8:30 am - Shahid Platt N.P. at [facility] Bkrqba0804/19/2019 - Shahid Platt N.ArabellaK59.00 Constipation, unspecifiedComments: MOM OR MIRALAX PRNHIGH FIBER DIETINCREASE PO WFJRFQ87.9 Atopic dermatitis, unspecifiedComments:F/U WITH PCP FOR TXJ30.9 Allergic rhinitis, unspecifiedComments:F/U WITH PCP FOR TXJ44.9 Chronic obstructive pulmonary disease, unspecifiedComments:INCREASE PO FLUIDREST NEB OR MDI AND /OR TBWVNVV05.13 Benign paroxysmal vertigo, bilateralComments:YLRMRHU53.9 Unspecified convulsionsComments:F/U WITH NEUROLOGY PRNSAFETY WTPKICF26.31 Right lower quadrant painNew Xrays:Abdomen, Single Anteroposterior View, Scheduled: Ultrasound, Abdominal; Complete, Scheduled: 04/20/19Comments:TYLENOL OR MOTRIN PRNINCREASE PO FLUIDLAXATIVE PRN F/U DIRECTEDF/U DIRECTEDReferral: Emi Martinez MD, KbqbburfyxnliedpS45.2 Nausea with vomiting, unspecifiedComments:INCREASE PO FLUID ERNESTINE DIETK92.1 MelenaComments:CT ABD/ PELVIS NEGATIVE? U/S ORGERED AND GI CONSULTCHECK LAB Functional Status Description No Information Available Mental Status Description No Information Available Referrals Refer to Dr Reason for Referral Status Appt Date Emi Martinez MD Closed 04/21/[address] [place] [address] [phone] Carroll Stone MD Sent [address] [place] [address] [phone]
--- OUTSIDE RECORDS SUMMARY | 2019-05-26 18:25 | XMS REPORT | Continuity of Care Document ---
:1990 External Reference #:[id number] Author Name Shahid Platt N.P. Address [address] [place] [address] [address] [place] [address] Problems Description No Information Available Social History Type Date Description Comments Sex Unknown ETOH Use Denies alcohol use Tobacco Use Start: Unknown End: Unknown Patient is a former smoker Recreational Drug Use Denies Drug Use Allergies, Adverse Reactions, Alerts Description No Known Drug Allergies Medications Active Medications SIG Qnty Indications Ordering Provider Date Ondansetron 1 tab by mouth 30tabs R11.2 Yadi Glae, 04/26/2019 4mg Tablets every 4 hours as M.D. Dispers needed Colace 2 by mouth twice 120caps K59.00 Yadi Gale, 04/12/2019 100mg Capsules a day M.D. Meclizine HCL take one tablet 90tabs H81.13 Yadi Gale, 04/12/2019 25mg by mouth every 6 M.D. Tablets hours as needed Immunizations Description No Information Available Vital Signs Date Vital Result Comment 04/26/2019 2:21pm BP Systolic 118 mmHg BP Diastolic 60 mmHg Height 75 inches 6'3" Weight 202.00 lb BMI (Body Mass Index) 25.2 kg/m2 Heart Rate 84 /min Respiratory Rate 16 /min 04/19/2019 10:23am BP Systolic 132 mmHg BP Diastolic 72 mmHg Height 75 inches 6'3" Weight 205.00 lb BMI (Body Mass Index) 25.6 kg/m2 Heart Rate 89 /min Respiratory Rate 18 /min Results Test Date Facility Test Result H/L Range Note Laboratory test 04/26/2019 [facility] Vitamin B12 @ <pending> finding [address] (963)- - Folate <pending> Laboratory test finding 04/26/2019 [facility] Amylase <pending> [address] (607)- - Lipase <pending> CBS W/Automated Diff 04/18/2019 [facility] White Blood 10.3 K/uL Normal 3.4 -10.5 1 Count Red Blood Count 5.62 M/uL Normal [...] 33.0-73.0 Lymph % 28.0 % Normal 20.0-42.0 [place] % 8.4 % Normal 0.0-10.0 Eo% 3.1 % Normal 0.0-6.6 Bas% 0.8 % Normal 0.0-1.1 Immature Grans 0.3 % Normal 0.0-5.0 NRBC % 0.0 /100WBC < 10/ 100 WBC Neut# 6.13 K/uL Normal 1.8-7.0 Lymph # 2.89 K/uL Normal 1.0-4.0 [place] # 0.87 K/uL High 0.0-0.8 Eos # 0.32 K/uL Normal 0.0-0.5 Baso # 0.08 K/uL Normal 0.0-0.1 Immature Grans Absolute 0.03 K/uL NRBC # 0.00 K/uL Comprehensive Metabolic Panel 04/18/2019 [facility] Glucose 86 mg/dL Normal 74-106 BUN 15 [...] 73 U/L Normal 45-117 Laboratory test 04/18/2019 [facility] C. Difficile Toxin B NEGATIVE Negative 4 finding by PCR Enteric Pathogens 04/18/2019 [facility] Campylobacter SP PCR NEGATIVE Negative Panel, PCR E. coli Stec PCR NEGATIVE Negative 5 Shigella Sp. PCR NEGATIVE Negative Salmonella Sp. PCR NEGATIVE Negative 6 Ua RFX Micro & Culture II 04/18/2019 [facility] Urine Color Yellow Yellow 7 Urine Clarity Clear Clear Urine Glucose - Dipstick NEGATIVE mg/dL Negative Urine Bilirubin - Dipstick NEGATIVE Negative Urine Ketone NEGATIVE mg/dL Negative Urine Specific [place] 1.029 Normal 1.010-1.030 Urine Blood NEGATIVE 0-2 Urine PH 5.0 Low 6.5-7.5 Urine Protein - Dipstick NEGATIVE mg/dL Negative Urine Urobilinogen - Dipstick < 2.0 mg/dL < 2.0 Urine Nitrite - Dipstick NEGATIVE Negative Urine Leuk Esterase NEGATIVE Negative Source: URINE, CLEAN CAT <SEE NOTE> 8 1 SEVERE ABDOMINAL PAIN 2 Note: Persistent [...] normal populations. Clinical correlation is suggested. 4 A positive C. diff result does not [...] produce a false negative result. METHOD: PCR 5 Shiga-toxin producing E. coli (STEC). 6 A positive result does not necessarily indicate [...] a false negative result. METHOD: PCR 7 PAIN BOTH SIDE DOWN TO MANHOOD 8 URINE, CLEAN CATCH Procedures Date Code Description Status 04/12/2019 02167 Visual Screening Test Completed 04/12/2019 74663 Audiometry, Bekesy, Screening Completed Medical Devices Description No Information Available Encounters Type Date Location Provider Dx Diagnosis Office Visit 04/26/2019 [facility] Shahid Platt, K59.00 Constipation, 3:00p N.P. unspecified L20.9 Atopic dermatitis, unspecified J30.9 Allergic rhinitis, unspecified J44.9 Chronic obstructive pulmonary disease, unspecified H81.13 Benign paroxysmal vertigo, bilateral R56.9 Unspecified convulsions R10.31 Right lower quadrant pain R11.2 Nausea with vomiting, unspecified K92.1 [place] Office Visit 04/19/2019 10:15a [facility] Shahid Platt, K59.00 Constipation, N.P. unspecified L20.9 Atopic dermatitis, unspecified J30.9 Allergic rhinitis, unspecified J44.9 Chronic obstructive pulmonary disease, unspecified H81.13 Benign paroxysmal vertigo, bilateral R56.9 Unspecified convulsions R10.31 Right lower quadrant pain R11.2 Nausea with vomiting, unspecified K92.1 [place] Office Visit 04/12/2019 1:45p [facility] Shahid Platt, K59.00 Constipation, N.P. unspecified L20.9 Atopic dermatitis, unspecified J30.9 Allergic rhinitis, unspecified J44.9 Chronic obstructive pulmonary disease, unspecified H81.13 Benign paroxysmal vertigo, bilateral R56.9 Unspecified convulsions Z00.01 Encounter for general adult medical exam w abnormal findings Assessments Date Code Description Provider 04/26/2019 K59.00 Constipation, unspecified Shahid Platt, N.P. [...] N.P. 04/12/2019 L20.9 Atopic dermatitis, unspecified Shahid Platt, N.P. 04/12/2019 J30.9 Allergic rhinitis, unspecified Shahid Platt N.P. 04/12/2019 J44.9 Chronic obstructive pulmonary disease, Shahid Platt N.P. unspecified 04/12/2019 H81.13 Benign paroxysmal vertigo, bilateral Shahid Platt N.P. 04/12/2019 R56.9 Unspecified convulsions Shahid Platt N.P. 04/12/2019 Z00.01 Encounter for general adult medical examination Shahid Platt N.P. with abnormal findings Plan of Treatment Future Appointment(s):05/12/2019 8:30 am - Shahid Platt N.P. at [facility] Functional Status Description No Information Available Mental Status Description No Information Available Referrals Refer to Dr Reason for Referral Status Appt Date Emi Martinez MD Closed 04/21/[address] [place] [address] [phone] Carroll Stone MD Sent [address] [place] [address] [place] [address] [phone]
--- OUTSIDE RECORDS SUMMARY | 2019-05-26 18:25 | XMS REPORT | Continuity of Care Document ---
:1990 External Reference #:[id number] Author Name Shahid Platt N.P. Address [address] [place] [address] [address] [place] [address] Problems Description No Information Available Social History [...] Available Vital Signs Date Vital Result Comment 04/12/2019 1:16pm BP Systolic 128 mmHg BP Diastolic 78 mmHg Height 75 inches 6'3" Weight 206.00 lb BMI (Body Mass Index) 25.7 kg/m2 Heart Rate 107 /min Respiratory Rate 18 /min Results Description No Information Available Procedures Date Code Description Status 04/12/2019 86103 Visual Screening Test Completed 04/12/2019 92414 Audiometry, Bekesy, Screening Completed Medical Devices Description No Information Available Encounters Type Date Location Provider Dx Diagnosis Office Visit 04/12/2019 [facility] Shahid Platt K59.00 Constipation, 1:45p N.P. unspecified L20.9 Atopic dermatitis, unspecified J30.9 Allergic rhinitis, unspecified J44.9 Chronic obstructive pulmonary disease, unspecified H81.13 Benign paroxysmal vertigo, bilateral R56.9 Unspecified convulsions Assessments Date Code Description Provider 04/12/2019 K59.00 Constipation, unspecified Shahid Platt N.PSantiago 04/12/2019 L20.9 Atopic dermatitis, unspecified Shahid Platt N.PSantiago 04/12/2019 J30.9 Allergic rhinitis, unspecified Shahid Platt N.P. 04/12/2019 J44.9 Chronic obstructive pulmonary disease, Shahid Platt N.P. unspecified 04/12/2019 H81.13 Benign paroxysmal vertigo, bilateral Song Ring.PSantiago 04/12/2019 R56.9 Unspecified convulsions Shahid Platt N.P. Plan of Treatment Future Appointment(s):05/12/2019 8:30 am - Shahid Platt N.P. at [facility]04/12/2019 - Shahid Platt N.P.K59.00 Constipation, unspecifiedNew Medication:Colace 100 mg - 2 by mouth twice a dayComments:MOM OR MIRALAX PRNHIGH FIBER DIETINCREASE PO PMBSMI05.9 Atopic dermatitis, unspecifiedComments: F/U WITH PCP FOR TXJ30.9 Allergic rhinitis, unspecifiedComments:F/U WITH PCP FOR TXJ44.9 Chronic obstructive pulmonary disease, unspecifiedComments:INCREASE PO FLUIDREST NEB OR MDI AND /OR EFHQCIU27.13 Benign paroxysmal vertigo, bilateralNew Medication:Meclizine HCL 25 mg - take one tablet by mouth every 6 hours as neededComments:GCHSCVH80.9 Unspecified convulsionsComments:F/U WITH NEUROLOGY PRNSAFETY STABLEReferral:Carroll Stone MD, Neurology Functional Status Description No Information Available Mental Status Description No Information Available Referrals Refer to Dr Reason for Referral Status Appt Date Carroll Stone MD Created [address] [place] [address] [phone]
--- OUTSIDE RECORDS SUMMARY | 2019-05-26 18:25 | XMS REPORT | Continuity of Care Document ---
:1990 External Reference #:[id number] Author Name Bjorn Dyer NP (transmitted by agent of provider Héctor Cobb) Address [address] [facility], [place] [address] Care Team Providers Name Role Phone Shahid Platt, CLINICAL MEDICAL TRANSCRIPTIONIST - Family Care Team Information Antenna Design Engineer [phone] Problems Description No Information Available Social History Type Date Description Comments Sex Unknown ETOH Use Denies alcohol use Tobacco Use Start: Unknown Patient is a current one pack per day. smoker, smokes every day Recreational Drug Use Denies Drug Use Smoking Status Reviewed: 05/19/19 Patient is a current one pack per day. smoker, smokes every day Allergies, Adverse Reactions, Alerts Active Allergies Reaction Severity Comments Date FD&C Red 40 Barber MRI Dye 05/19/2019 Medications Active Medications SIG Qnty Indications Ordering Date Provider Depkatharine take one tab by 42tanaomi Cano 05/19/2019 500mg mouth at night for iPto Stone Tablets two weeks, take one tabs twice a day two weeks Depakote take one tab by 42tabs G40.909 Carroll Cano 05/19/2019 500mg mouth at night for Pito Stone Tablets two wilber, take one tabs twice a day Carafate one tablet on empty Unknown 1gm stomach one hour Tablets before meals daily. Ondansetron dissolve one tablet Unknown 4mg orally every 8 hours Tablets Dispers as needed for nausea. Omeprazole 1 by mouth every day Unknown 40mg Capsules DR Docusate Sodium 2 tab every 12 hours Unknown as needed for 100mg Capsules constipation Meclizine HCL 1 pill twice a day Unknown if too sedating 12.5mg Tablets reduce to one pill at bedtime Proctosol HC apply to rectal area Unknown 2.5% twice a day as Cream needed irritation generic ok Immunizations Description No Information Available Vital Signs Description No Information Available Procedures Description No Information Available Medical Devices Description No Information Available Encounters Description No Information Available Assessments Date Code Description Provider 05/19/2019 G43.009 Migraine without aura, not intractable, without Bjorn Dyer NP status migrainosus 05/19/2019 G40.909 Epilepsy, unspecified, not intractable, without Bjorn Dyer NP status epilepticus 05/19/2019 R53.1 Weakness Bjorn Dyer NP Plan of Treatment Future Appointment(s):06/22/2019 3:00 pm - Bjorn Dyer NP at [facility]05/19/2019 - Bjorn Dyer NPG43.009 Migraine without aura , not intractable, without status migrainosusFollow up:3-4 WEEKS in [place] with Bjorn.G40.909 Epilepsy, unspecified, not intractable, without status epilepticusNew Medication:Depakote 500 mg - take one tab by mouth at night for two weeks, take one tabs twice a dayNew Xrays:MRI Brain W/O, Ordered: New Orders:EEG, Routine, Ordered: 05/19/19R53.1 WeaknessNew Orders:EMG w/ Nerve Conduct Study, Lower, Ordered: 05/19/19EMG w/Nerve Conduct Study, Upper, Ordered: 05/19/19 Functional Status Description No Information Available Mental Status Description No Information Available Referrals Description No Information Available
--- OUTSIDE RECORDS SUMMARY | 2019-05-26 18:25 | XMS REPORT | Continuity of Care Document ---
:1990 External Reference #:[id number] Author Name Shahid Platt N.P. Address [address] [place] [address] [address] [place] [address] Problems Description No Information Available Social History Type Date Description Comments Sex Unknown ETOH Use Denies alcohol use Tobacco Use Start: Unknown End: Unknown Patient is a former smoker Recreational Drug Use Denies Drug Use Allergies, Adverse Reactions, Alerts Description No Known Drug Allergies Medications Active Medications SIG Qnty Indications Ordering Date Provider Ciprofloxacin HCL 1 tab by mouth 20tabs N39.0 [facility] 05/19/2019 500mg twice a day M., M.D. Tablets Carafate 1 tab by mouth 90tabs [facility] 05/12/2019 1gm Tablets three times a day M., M.D. before meals Proctosol HC apply to 56.7gm K64.9 [facility] 05/01/2019 2.5% Cream hemorrhoid four M., M.D. times a day as needed Omeprazole 1 by mouth bid 60caps K21.0 [facility] 05/01/2019 40mg M., M.D. Capsules Ondansetron 1 tab by mouth 30tabs R11.2 [facility] 04/26/2019 4mg Tablets every 4 hours as M., M.D. Dispers needed Colace 2 by mouth twice a 120caps K59.00 [facility] 04/12/2019 100mg Capsules day M., M.D. Meclizine HCL take one tablet by 90tabs H81.13 [facility] 04/12/2019 25mg mouth every 6 M., M.D. Tablets hours as needed Immunizations Description No Information Available Vital Signs Date Vital Result Comment 05/19/2019 2:08pm BP Systolic 125 mmHg BP Diastolic 59 mmHg Height 75 inches 6'3" Heart Rate 88 /min Respiratory Rate 16 /min 05/12/2019 8:41am BP Systolic 123 mmHg BP Diastolic 60 mmHg Height 75 inches 6'3" Weight 206.00 lb BMI (Body Mass Index) 25.7 kg/m2 Heart Rate 90 /min Respiratory Rate 16 /min Results Test Date Facility Test Result H/L Range Note CBC With Diff 05/12/2019 [facility] WBC 9.7 10*3/uL (4.1-11.0) [address] (607)- - RBC 5.53 10*6/uL (4.60-6.10) HGB 17.2 g/dL (13.5-18.0) HCT 50.7 % (41.0-53.0) MCV 91.7 fL (80.0-95.0) MCH 31.1 pg (27.0-32.0) MCHC 33.9 g/dL (32.0-36.0) RDW 15.4 % High (10.5-14.5) PLT 192 10*3/uL (150-450) MPV 10.4 fL (7.1-10.7) Neut % 54.9 % (35.0-75.0) Lymph % 34.4 % (16.0-52.0) [place] % 7.7 % (0.0-8.0) Eos % 2.3 % (0.0-5.0) Baso % 0.7 % (0.0-4.0) Neut # 5.3 10*3/uL (1.8-7.7) Lymph # 3.3 10*3/uL (1.2-4.8) [place] # 0.7 10*3/uL (0.0-0.8) Eos # 0.2 10*3/uL (0.0-0.5) Baso # 0.1 10*3/uL (0.0-0.2) CMP 05/12/2019 [facility] Sodium 144 mmol/L (136-145) [address] (607)- - Potassium 4.0 mmol/L (3.6-5.2) Chloride 111 mmol/L High (100-108) Co2 25 mmol/L (22-31) Anion Gap 8 mmol/L (7-16) Urea Nitrogen 13 mg/dL (7-24) Creatinine 1.10 mg/dL (0.80-1.30) BUN/Creat Ratio 11.8 RATIO (10.0-20.0) Glucose 99 mg/dL (70-99) Calcium 8.9 mg/dL (8.4-10.2) Total Protein 6.9 g/dL (6.4-8.2) Albumin 3.9 g/dL (3.5-4.6) Globulin 3.0 g/dL (2.7-4.3) Alb/Glob Ratio 1.3 RATIO Alkaline Phosphatase 74 U/L (45-117) Bilirubin,Total 0.2 mg/dL (0.0-1.0) Ast (Sgot) 9 U/L Low (11-39) Alt (SGPT) 20 U/L (12-78) GFR >60 ml/min/1.73m2 (>59) GFR ( Amer) >60 ml/min/1.73m2 (>59) GFR Interpretation <SEE NOTE> 1 Laboratory test 05/12/2019 [facility] Amylase 157 U/L High (25-115) finding [address] (607)- - Lipase 120 U/L (65-230) Order 05/12/2019 Yadi Gale MD Venipuncture <pending> Laboratory test 04/26/2019 [facility] Bilirubin,Conjugate 0.1 mg/dL ( 0.0-0 finding [address] d .3) (607)- - Bilirubin,Unconj. 0.3 mg/dL (0.0-0.7) Laboratory test 04/26/2019 [facility] Amylase 126 U/L High (25-115) finding [address] (607)- - Lipase 73 U/L (65-230) Hepatitis Profile 04/26/2019 [facility] Hepatitis B S Ag NEGATIVE (Neg ) Acute [address] @ (607)- - Hep. B Core Igm @ NEGATIVE (Neg) Hepatitis A AB Igm @ NEGATIVE (Neg) Hepatitis C AB @ NEGATIVE (Neg) 2 Laboratory test 04/26/2019 [facility] Vitamin B12 @ 461 pg/mL (193-986 ) finding [address] (607)- - Folate @ 5.5 ng/mL (3.1-17.5) Iron Panel 04/26/2019 [facility] Iron,Total @ 124 g/dL (35-150) [facility] (607)- - Uibc @ 150 g/dL (130-375) Tibc @ 274 g/dL (250-450) % Saturation 45 % (12-50) CMP 04/26/2019 [facility] Sodium 143 mmol/L (136-145) [facility] (607)- - Potassium 3.9 mmol/L (3.6-5.2) [...] >60 ml/min/1.73m2 (>59) GFR Interpretation <SEE NOTE> 3 CBC With Diff 04/26/2019 [facility] WBC 7.2 10*3/uL (4.1-11.0) [facility] (607)- - RBC 5.36 10*6/uL (4.60-6.10) HGB 16.6 g/dL (13.5-18.0) HCT 48.5 % (41.0-53.0) MCV 90.6 fL (80.0-95.0) MCH 31.0 pg (27.0-32.0) MCHC 34.2 g/dL (32.0-36.0) RDW 14.4 % (10.5-14.5) PLT 192 10*3/uL (150-450) MPV 10.5 fL (7.1-10.7) Neut % 61.9 % (35.0-75.0) Lymph % 30.1 % (16.0-52.0) [place] % 6.3 % (0.0-8.0) Eos % 0.9 % (0.0-5.0) Baso % 0.8 % (0.0-4.0) Neut # 4.5 10*3/uL (1.8-7.7) Lymph # 2.2 10*3/uL (1.2-4.8) [place] # 0.5 10*3/uL (0.0-0.8) Eos # 0.1 10*3/uL (0.0-0.5) Baso # 0.1 10*3/uL (0.0-0.2) CBS W/Automated Diff 04/18/2019 [facility] White Blood 10.3 K/uL Normal 3.4 -10.5 4 Count Red Blood Count 5.62 M/uL Normal [...] 33.0-73.0 Lymph % 28.0 % Normal 20.0-42.0 [place] % 8.4 % Normal 0.0-10.0 Eo% 3.1 % Normal 0.0-6.6 Bas% 0.8 % Normal 0.0-1.1 Immature Grans 0.3 % Normal 0.0-5.0 NRBC % 0.0 /100WBC < 10/ 100 WBC Neut# 6.13 K/uL Normal 1.8-7.0 Lymph # 2.89 K/uL Normal 1.0-4.0 [place] # 0.87 K/uL High 0.0-0.8 Eos # 0.32 K/uL Normal 0.0-0.5 Baso # 0.08 K/uL Normal 0.0-0.1 Immature Grans Absolute 0.03 K/uL NRBC # 0.00 K/uL Comprehensive Metabolic Panel 04/18/2019 [facility] Glucose 86 mg/dL Normal 74-106 BUN 15 mg/dL Normal 7-18 Creatinine 1.0 mg/dL Normal 0.6-1.3 Glom Filtration Rate, Estimate >60 mL/min >60 If >60 mL/min >60 5 BUN/Creat 15.0 ratio Sodium 143 mmol/L Normal [...] Normal 0.2-1.0 Sgot/Ast 13 U/L Low 15-37 6 SGPT/Alt 26 U/L Normal 12-78 Alkaline Phosphatase 73 U/L Normal 45-117 Laboratory test 04/18/2019 [facility] C. Difficile Toxin B NEGATIVE Negative 7 finding by PCR Enteric Pathogens 04/18/2019 [facility] Campylobacter SP PCR NEGATIVE Negative Panel, PCR E. coli Stec PCR NEGATIVE Negative 8 Shigella Sp. PCR NEGATIVE Negative Salmonella Sp. PCR NEGATIVE Negative 9 Ua RFX Micro & Culture II 04/18/2019 [facility] Urine Color Yellow Yellow 10 Urine Clarity Clear Clear Urine Glucose - Dipstick NEGATIVE mg/dL Negative Urine Bilirubin - Dipstick NEGATIVE Negative Urine Ketone NEGATIVE mg/dL Negative Urine Specific [place] 1.029 Normal 1.010-1.030 Urine Blood NEGATIVE 0-2 Urine PH 5.0 Low 6.5-7.5 Urine Protein - Dipstick NEGATIVE mg/dL Negative Urine Urobilinogen - Dipstick < 2.0 mg/dL < 2.0 Urine Nitrite - Dipstick NEGATIVE Negative Urine Leuk Esterase NEGATIVE Negative Source: URINE, CLEAN CAT <SEE NOTE> 11 1 NORMAL KIDNEY FUNCTION OR MILD DISEASE [...] EVIDENCE EXISTS TO INDICATE HCV INFECTION. 3 NORMAL KIDNEY FUNCTION OR MILD DISEASE - GFR >OR= 60 CHRONIC KIDNEY DISEASE - GFR 15 - 59 RENAL FAILURE - GFR <15 Est. GFR calculation based on the MDRD study equation, which assumes a steady state for creatinine. Est. GFR should not be used for medication dosing. 4 SEVERE ABDOMINAL PAIN 5 Note: Persistent reduction for 3 months or more in an eGFR <60 mL/min/1.73 m2 defines CKD. Patients with eGFR values >/=60 mL/min/1.73 m2 may also have CKD if evidence of persistent proteinuria is present. The original MDRD equation for estimated GFR is not valid for patients less than 18 years of age. Additional information may be found at www.kdoqi.org. 6 Values below the stated reference ranges of AST and ALT can be seen in normal populations. Clinical correlation is suggested. 7 A positive C. diff result does not [...] produce a false negative result. METHOD: PCR 8 Shiga-toxin producing E. coli (STEC). 9 A positive result does not necessarily indicate [...] produce a false negative result. METHOD: PCR 10 PAIN BOTH SIDE DOWN TO MANHOOD 11 URINE, CLEAN CATCH Procedures Date Code Description Status 04/12/2019 51722 Visual Screening Test Completed 04/12/2019 58812 Audiometry, Bekesy, Screening Completed Medical Devices Description No Information Available Encounters Type Date Location Provider Dx Diagnosis Office Visit 05/19/2019 [facility] Shahid Platt, K59.00 Constipation, 2:45p N.P. unspecified L20.9 Atopic dermatitis, unspecified J30.9 [...] Mixed conductive and sensorineural hearing loss, bilateral N39.0 Urinary tract infection, site not specified Office Visit 05/12/2019 8:30a [facility] Shahid Platt, K59.00 Constipation, N.P. unspecified [...] hearing loss, bilateral Office Visit 05/01/2019 9:45a [facility] Shahid Platt, K59.00 Constipation, N.P. unspecified [...] of digestive system Office Visit 04/26/2019 3:00p [facility] Shahid Platt, K59.00 Constipation, N.P. unspecified L20.9 Atopic dermatitis, unspecified J30.9 Allergic rhinitis, unspecified J44.9 Chronic obstructive pulmonary disease, unspecified H81.13 Benign paroxysmal vertigo, bilateral R56.9 Unspecified convulsions R10.31 Right lower quadrant pain R11.2 Nausea with vomiting, unspecified K92.1 [facility] Office Visit 04/19/2019 10:15a [facility] Shahid Platt, K59.00 Constipation, N.P. unspecified L20.9 Atopic dermatitis, unspecified J30.9 Allergic rhinitis, unspecified J44.9 Chronic obstructive pulmonary disease, unspecified H81.13 Benign paroxysmal vertigo, bilateral R56.9 Unspecified convulsions R10.31 Right lower quadrant pain R11.2 Nausea with vomiting, unspecified K92.1 [facility] Office Visit 04/12/2019 1:45p [facility] Shahid Platt, K59.00 Constipation, N.P. unspecified L20.9 Atopic dermatitis, unspecified J30.9 Allergic rhinitis, unspecified J44.9 Chronic obstructive pulmonary disease, unspecified H81.13 Benign paroxysmal vertigo, bilateral R56.9 Unspecified convulsions Z00.01 Encounter for general adult medical exam w abnormal findings Assessments Date Code Description Provider 05/19/2019 K59.00 Constipation, unspecified Shahid Platt, N.P. 05/19/2019 L20.9 Atopic dermatitis, unspecified Shahid Platt, N.P. 05/19/2019 J30.9 Allergic rhinitis, unspecified Shahid Platt, N.P. 05/19/2019 J44.9 Chronic obstructive pulmonary disease, Shahid Platt, N.P. unspecified 05/19/2019 H81.13 Benign paroxysmal vertigo, bilateral Shahid Platt N.P. 05/19/2019 R56.9 Unspecified convulsions Shahid Platt N.P. 05/19/2019 R10.31 Right lower quadrant pain Shahid Platt N.P. 05/19/2019 R11.2 Nausea with vomiting, unspecified Shahid Platt N.P. 05/19/2019 K92.1 [facility] Shahid Platt, N.P. 05/19/2019 K21.0 Gastro-esophageal reflux disease with Shahid Platt N.PSantiago esophagitis 05/19/2019 K64.9 Unspecified hemorrhoids Shahid Platt N.P. 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 loss, bilateral 05/19/2019 N39.0 Urinary tract infection, site not specified Shahid Platt N.P. 05/12/2019 K59.00 Constipation, unspecified Shahid Platt N.P. 05/12/2019 L20.9 Atopic dermatitis, unspecified Shahid Platt, N.P. 05/12/2019 J30.9 Allergic rhinitis, unspecified Shahid Platt N.P. 05/12/2019 J44.9 Chronic obstructive pulmonary disease, Shahid Platt N.P. unspecified 05/12/2019 H81.13 Benign paroxysmal vertigo, bilateral Shahid Platt N.P. 05/12/2019 R56.9 Unspecified convulsions Shahid Platt, N.P. 05/12/2019 R10.31 Right lower quadrant pain Shahid Platt, N.P. 05/12/2019 R11.2 Nausea with vomiting, unspecified Shahid Platt, N.P. 05/12/2019 K92.1 [facility] Shahid Platt, N.P. 05/12/2019 K21.0 Gastro-esophageal reflux disease with Shahid Platt, N.P. esophagitis 05/12/2019 K64.9 Unspecified hemorrhoids Shahid Platt, N.P. 05/12/2019 D37.6 Neoplasm of uncertain behavior of liver, Shahid Platt, N.P. 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 system 05/12/2019 H90.6 Mixed conductive and sensorineural hearing Shahid Platt, N.P. loss, bilateral 05/01/2019 K59.00 Constipation, unspecified [...] unspecified Shahid Platt, N.P. 05/01/2019 K92.1 [facility] Sahhid Platt, N.P. 05/01/2019 K21.0 Gastro-esophageal reflux disease [...] N.P. 04/26/2019 R11.2 Nausea with vomiting, unspecified Shahdi Platt, N.P. 04/26/2019 K92.1 [facility] Shahid Platt, [...] 04/12/2019 H81.13 Benign paroxysmal vertigo, bilateral Shahid Platt, N.P. 04/12/2019 R56.9 Unspecified convulsions Shahid Platt, N.P. 04/12/2019 Z00.01 Encounter for general adult medical examination Shahid Platt N.P. with abnormal findings Plan of Treatment Future Appointment(s):05/22/2019 2:45 pm - Shahid Platt N.P. at [facility] Functional Status Description No Information Available Mental Status Description No Information Available Referrals Refer to Reason for Referral Status Appt Date Kali Avila MD Closed 06/19/2019 [address] [place] [address] ENT [phone] Emi Martinez MD Closed 04/21/2019 [address] [place] [address] [phone] Carroll Stone MD Sent [address] [place] [address] [phone]
--- OUTSIDE RECORDS SUMMARY | 2019-05-26 18:25 | XMS REPORT | Continuity of Care Document ---
:1990 External Reference #:[id number] Author Name Shahid Platt N.P. Address [address] [place] [address] [address] [place] [address] Problems Description No Information Available Social History Type Date Description Comments Sex Unknown ETOH Use Denies alcohol use Tobacco Use Start: Unknown End: Unknown Patient is a former smoker Recreational Drug Use Denies Drug Use Allergies, Adverse Reactions, Alerts Description No Known Drug Allergies Medications Active Medications SIG Qnty Indications Ordering Date Provider Ciprofloxacin HCL 1 tab by mouth 20tabs N39.0 [facility] 05/19/2019 500mg twice a day M., M.D. Tablets Carafate 1 tab by mouth 90tabs [facility] 05/12/2019 1gm Tablets three times a day M., M.D. before meals Proctosol HC apply to 56.7gm K64.9 [facility] 05/[facility] 2.5% Cream hemorrhoid four M., M.D. times a day as needed Omeprazole 1 by mouth bid 60caps K21.0 [facility] 05/01/2019 40mg M., M.D. Capsules Ondansetron 1 tab by mouth 30tabs R11.2 [facility] 4mg Tablets every 4 hours as M., M.D. Dispers needed Colace 2 by mouth twice a 120caps K59.00 [facility] 04/12/2019 100mg Capsules day M., M.D. Meclizine HCL take one tablet by 90tabs H81.13 [facility] 04/12/2019 25mg mouth every 6 M., M.D. Tablets hours as needed Divalproex Sodium one tab by mouth 60tabs BaljinderYadi 500mg twice a day [place] Tablets DR Azevedo Description No Information Available Vital Signs Date Vital Result Comment 05/22/2019 2:26pm BP Systolic 125 mmHg BP Diastolic 62 mmHg Height 75 inches 6'3" Weight 204.00 lb BMI (Body Mass Index) 25.5 kg/m2 Heart Rate 83 /min Respiratory Rate 16 /min 05/19/2019 2:08pm BP Systolic 125 mmHg BP Diastolic 59 mmHg Height 75 inches 6'3" Heart Rate 88 /min Respiratory Rate 16 /min Results Test Acquired Date Facility Test Result H/L Range Note CBC With Diff 05/12/2019 [facility] WBC 9.7 10*3/uL (4.1-11.0) [address] (607)- - RBC 5.53 10*6/uL (4.60-6.10) HGB 17.2 g/dL (13.5-18.0) HCT 50.7 % (41.0-53.0) MCV 91.7 fL (80.0-95.0) MCH 31.1 pg (27.0-32.0) MCHC 33.9 g/dL (32.0-36.0) RDW 15.4 % High (10.5-14.5) PLT 192 10*3/uL (150-450) MPV 10.4 fL (7.1-10.7) Neut % 54.9 % (35.0-75.0) Lymph % 34.4 % (16.0-52.0) [place] % 7.7 % (0.0-8.0) Eos % 2.3 % (0.0-5.0) Baso % 0.7 % (0.0-4.0) Neut # 5.3 10*3/uL (1.8-7.7) Lymph # 3.3 10*3/uL (1.2-4.8) [place] # 0.7 10*3/uL (0.0-0.8) Eos # 0.2 10*3/uL (0.0-0.5) Baso # 0.1 10*3/uL (0.0-0.2) CMP 05/12/2019 [facility] Sodium 144 mmol/L (136-145) [address] (607)- - Potassium 4.0 mmol/L (3.6-5.2) [...] <SEE NOTE> 1 Laboratory test 05/12/2019 [facility] Amylase 157 U/L High (25-115) finding [address] (607)- - Lipase 120 U/L (65-230) Order 05/12/2019 Ydai Gale MD Venipuncture <pending> Laboratory test 04/26/2019 [facility] Bilirubin,Conjugate 0.1 mg/dL ( 0.0-0 finding [address] d .3) (607)- - Bilirubin,Unconj. 0.3 mg/dL (0.0-0.7) Laboratory test 04/26/2019 [facility] Amylase 126 U/L High (25-115) finding [address] (607)- - Lipase 73 U/L (65-230) Hepatitis Profile 04/26/2019 [facility] Hepatitis B S Ag NEGATIVE (Neg ) Acute [address] @ (607)- - Hep. B Core Igm @ NEGATIVE (Neg) Hepatitis A AB Igm @ NEGATIVE (Neg) Hepatitis C AB @ NEGATIVE (Neg) 2 Laboratory test 04/26/2019 [facility] Vitamin B12 @ 461 pg/mL (193-986 ) finding [address] (607)- - Folate @ 5.5 ng/mL (3.1-17.5) Iron Panel 04/26/2019 [facility] Iron,Total @ 124 g/dL (35-150) [address] (607)- - Uibc @ 150 g/dL (130-375) Tibc @ 274 g/dL (250-450) % Saturation 45 % (12-50) CMP 04/26/2019 [facility] Sodium 143 mmol/L (136-145) [address] [...] NOTE> 3 CBC With Diff 04/26/2019 [facility] WBC 7.2 10*3/uL (4.1-11.0) [address] (607)- - RBC 5.36 10*6/uL (4.60-6.10) HGB 16.6 g/dL (13.5-18.0) HCT 48.5 % (41.0-53.0) MCV 90.6 fL (80.0-95.0) MCH 31.0 pg (27.0-32.0) MCHC 34.2 g/dL (32.0-36.0) RDW 14.4 % (10.5-14.5) PLT 192 10*3/uL (150-450) MPV 10.5 fL (7.1-10.7) Neut % 61.9 % (35.0-75.0) Lymph % 30.1 % (16.0-52.0) [place] % 6.3 % (0.0-8.0) Eos % 0.9 % (0.0-5.0) Baso % 0.8 % (0.0-4.0) Neut # 4.5 10*3/uL (1.8-7.7) Lymph # 2.2 10*3/uL (1.2-4.8) [place] # 0.5 10*3/uL (0.0-0.8) Eos # 0.1 10*3/uL (0.0-0.5) Baso # 0.1 10*3/uL (0.0-0.2) CBS W/Automated Diff 04/18/2019 [facility] White Blood 10.3 K/uL Normal 3.4 -10.5 [...] 33.0-73.0 Lymph % 28.0 % Normal 20.0-42.0 [place] % 8.4 % Normal 0.0-10.0 Eo% 3.1 % Normal 0.0-6.6 Bas% 0.8 % Normal 0.0-1.1 Immature Grans 0.3 % Normal 0.0-5.0 NRBC % 0.0 /100WBC < 10/ 100 WBC Neut# 6.13 K/uL Normal 1.8-7.0 Lymph # 2.89 K/uL Normal 1.0-4.0 [place] # 0.87 K/uL High 0.0-0.8 Eos # 0.32 K/uL Normal 0.0-0.5 Baso # 0.08 K/uL Normal 0.0-0.1 Immature Grans Absolute 0.03 K/uL NRBC # 0.00 K/uL Comprehensive Metabolic Panel 04/18/2019 [facility] Glucose 86 mg/dL Normal 74-106 BUN 15 [...] 73 U/L Normal 45-117 Laboratory test 04/18/2019 [facility] C. Difficile Toxin B NEGATIVE Negative 7 finding by PCR Enteric Pathogens 04/18/2019 [facility] Campylobacter SP PCR NEGATIVE Negative Panel, PCR E. coli Stec PCR NEGATIVE Negative 8 Shigella Sp. PCR NEGATIVE Negative Salmonella Sp. PCR NEGATIVE Negative 9 Ua RFX Micro & Culture II 04/18/2019 [facility] Urine Color Yellow Yellow 10 Urine Clarity Clear Clear Urine Glucose - Dipstick NEGATIVE mg/dL Negative Urine Bilirubin - Dipstick NEGATIVE Negative Urine Ketone NEGATIVE mg/dL Negative Urine Specific Ross 1.029 Normal 1.010-1.030 Urine Blood NEGATIVE 0-2 [...] CATCH Procedures Date Code Description Status 04/12/2019 60371 Visual Screening Test Completed 04/12/2019 04046 Audiometry, Bekesy, Screening Completed Medical Devices Description No Information Available Encounters Type Date Location Provider Dx Diagnosis Office Visit 05/22/2019 [facility] Shahid Platt, K59.00 Constipation, 2:45p N.P. unspecified [...] N39.0 Urinary tract infection, site not specified Z13.29 Encounter for screening for oth suspected endocrine disorder Office Visit 05/19/2019 2:45p [facility] Shahid Platt, K59.00 Constipation, N.P. unspecified [...] site not specified Office Visit 05/12/2019 8:30a [facility] Shahid Platt, K59.00 Constipation, N.P. unspecified L20.9 [...] hearing loss, bilateral Office Visit 05/01/2019 9:45a [facility] Shahid Platt, K59.00 Constipation, N.P. unspecified L20.9 [...] of digestive system Office Visit 04/26/2019 3:00p [facility] Shahid Platt, K59.00 Constipation, N.P. unspecified L20.9 Atopic dermatitis, unspecified J30.9 Allergic rhinitis, unspecified J44.9 Chronic obstructive pulmonary disease, unspecified H81.13 Benign paroxysmal vertigo, bilateral R56.9 Unspecified convulsions R10.31 Right lower quadrant pain R11.2 Nausea with vomiting, unspecified K92.1 [facility] Office Visit 04/19/2019 10:15a [facility] Shahid Platt, K59.00 Constipation, N.P. unspecified L20.9 Atopic dermatitis, unspecified J30.9 Allergic rhinitis, unspecified J44.9 Chronic obstructive pulmonary disease, unspecified H81.13 Benign paroxysmal vertigo, bilateral R56.9 Unspecified convulsions R10.31 Right lower quadrant pain R11.2 Nausea with vomiting, unspecified K92.1 [facility] Office Visit 04/12/2019 1:45p [facility] Shahid Platt, K59.00 Constipation, N.P. unspecified L20.9 Atopic dermatitis, unspecified J30.9 Allergic rhinitis, unspecified J44.9 Chronic obstructive pulmonary disease, unspecified H81.13 Benign paroxysmal vertigo, bilateral R56.9 Unspecified convulsions Z00.01 Encounter for general adult medical exam w abnormal findings Assessments Date Code Description Provider 05/22/2019 K59.00 Constipation, unspecified Shahid Platt, N.P. 05/22/2019 L20.9 Atopic dermatitis, unspecified Shahid Platt, N.P. 05/22/2019 J30.9 Allergic rhinitis, unspecified Shahid Platt, N.P. 05/22/2019 J44.9 Chronic obstructive pulmonary disease, Shahid Platt, N.P. unspecified 05/22/2019 H81.13 Benign paroxysmal vertigo, bilateral Shahid Platt, N.P. 05/22/2019 R56.9 Unspecified convulsions Shahid Platt N.P. 05/22/2019 R10.31 Right lower quadrant pain Shahid Platt, N.P. 05/22/2019 R11.2 Nausea with vomiting, unspecified Shahid Platt N.P. 05/22/2019 K92.1 [facility] Shahid Platt, N.P. 05/22/2019 K21.0 Gastro-esophageal reflux disease with Shahid Platt, N.P. esophagitis 05/22/2019 K64.9 Unspecified hemorrhoids Shahid Platt N.P. 05/22/2019 D37.6 Neoplasm of uncertain behavior of liver, Shahid Platt, N.P. 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 system 05/22/2019 H90.6 Mixed conductive and sensorineural hearing Shahid Platt N.P. loss, bilateral 05/22/2019 N39.0 Urinary tract infection, site not specified Shahid Platt, N.P. 05/22/2019 Z13.29 Encounter for screening for other suspected Shahid Platt N.P. endocrine disorder 05/19/2019 K59.00 Constipation, unspecified Shahid Platt, N.P. 05/19/2019 L20.9 Atopic dermatitis, unspecified Shahid Platt, N.P. 05/19/2019 J30.9 Allergic rhinitis, unspecified Shahid Platt N.P. 05/19/2019 J44.9 Chronic obstructive pulmonary disease, Shahid Platt N.P. unspecified 05/19/2019 H81.13 Benign paroxysmal vertigo, bilateral Shahid Platt, N.P. 05/19/2019 R56.9 Unspecified convulsions Shahid Platt N.P. 05/19/2019 R10.31 Right lower quadrant pain Shahid Platt N.P. 05/19/2019 R11.2 Nausea with vomiting, unspecified Shahid Platt, N.P. 05/19/2019 K92.1 [facility] Shahid Platt, N.P. 05/19/2019 K21.0 Gastro-esophageal reflux disease with Shahid Platt N.P. esophagitis 05/19/2019 K64.9 Unspecified hemorrhoids Shahid Platt, N.P. 05/19/2019 D37.6 Neoplasm of uncertain behavior of liver, Shahid Platt, N.P. 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 system 05/19/2019 H90.6 Mixed conductive and sensorineural hearing Shahid Platt N.P. loss, bilateral 05/19/2019 N39.0 Urinary tract infection, site not specified Shahid Platt N.P. 05/12/2019 K59.00 Constipation, unspecified Shahid Platt, N.P. 05/12/2019 L20.9 Atopic dermatitis, unspecified Shahid Platt, N.P. 05/12/2019 J30.9 Allergic rhinitis, unspecified Shahid Platt, N.P. 05/12/2019 J44.9 Chronic obstructive pulmonary disease, Shahid Platt, N.P. unspecified 05/12/2019 H81.13 Benign paroxysmal vertigo, bilateral Shahid Platt, N.P. 05/12/2019 R56.9 Unspecified convulsions Shahid Platt, N.P. 05/12/2019 R10.31 Right lower quadrant pain Shahid Platt, N.P. 05/12/2019 R11.2 Nausea with vomiting, unspecified Shahid Platt, N.P. 05/12/2019 K92.1 [facility] Shahid Platt, N.P. 05/12/2019 K21.0 Gastro-esophageal reflux disease with Shahid Platt, N.P. esophagitis 05/12/2019 K64.9 Unspecified hemorrhoids Shahid Platt [...] 05/01/2019 R11.2 Nausea with vomiting, unspecified Shahid Platt N.P. 05/01/2019 K92.1 [facility] Shahid Platt N.P. 05/01/2019 K21.0 Gastro-esophageal reflux disease with [...] with abnormal findings Plan of Treatment Future Appointment(s):05/29/2019 10:00 am - Shahid Platt N.P. at [facility] Functional Status Description No Information Available Mental Status Description No Information Available Referrals Refer to Reason for Referral Status Appt Date Kali Avila MD Closed 06/19/2019 [address] [place] [address] ENT [phone] Emi Martinez MD Closed 04/21/2019 [address] [place] [address] [phone] Carroll Stone MD Sent [address] [place] [address] [phone]
[2019-05-26] MEDS ORDERED: ALPRAZolam TAB* 0.5 MG PO ONE (20:10)
[2019-05-26 20:11] VITALS: BP 115/63
== END 2019-05-26 20:10 | disposition home or self-care (01) ==
LOC: ED 16:59
DX: F43.21 Adjustment disorder with depressed mood (principal); Z91.041 Radiographic dye allergy status; F17.200 Nicotine dependence, unspecified, uncomplicated
CPT/HCPCS: 36415; 80053; 80307; 80320; 80329; 81003; 84443; 85025; 99285; G0480; J2060